=== PATIENT | male | born 1975 | race Caucasian/White ===

== ENCOUNTER → 2017-01-30 | Outpatient (CLI) | payer OTHER ==
--- NOTE | 2017-01-30 15:37 | PDCARST ---
CAR Stress Test Results Type of Stress Test: Nuclear TM stress test Indication: cp Description of Procedure: After informed consent was obtained, pt was exercised according to Marty Protocol. Monitoring was performed with standard stress coal sample tester electrode placement. Vital signs were monitored according to protocol throughout the procedure. STRESS EKG AND HEMODYNAMIC DATA. Exercise time: 15: 30 min. This is equivalent to: 15.1 METS. Resting heart rate: 65 bpm. Resting blood pressure: 180/62 mmHg. Resting O2 saturation:99%. Peak heart rate: 187 bpm. This is 106 % of age predicted maximum heart rate response. Peak blood pressure: 122/72 mmHg. Exercise O2: 96 %. Arrhythmias : occasional PACs on exertion. Reason for termination: The test was stopped due to achieving target heart rate. Symptoms: The patient experienced no typical symptoms of angina during stress or recovery. STRESS TEST ANALYSIS. Baseline ECG: SR with rSr', J point elevations. Stress ECG: Sinus tach. No exercise induced ischemic ECG changes. Rhythm: Occasional PACs noted during exercise. Blood pressure: Normal blood pressure response to exercise. Exercise tolerance: The patient has above average exercise tolerance adjusted for age and gender. Symptoms: No exercise induced symptoms. Impression: Stress ECG negative for ischemia. The Josue Treadmill Score is +15, consistent with low cardiovascular risk (<1% annual mortality). Conclusion: Await nuclear images.
== END ==
LOC: FIMAGING 13:18
PROVIDERS: ATTEND Internal Medicine Cardiovascular Disease
DX: R94.39 Abnormal result of other cardiovascular function study (principal); I25.10 Atherosclerotic heart disease of native coronary artery without angina pectoris; E78.5 Hyperlipidemia, unspecified; I45.10 Unspecified right bundle-branch block
CPT/HCPCS: 78452; 93017; A9500

== ENCOUNTER 2018-02-01 14:54 | Emergency (ER) | payer OTHER ==
--- NOTE | 2018-02-01 15:05 | EDPHY ---
H & P Stated Complaint: UPPER CHEST "FLUTTERING & TIGHTNESS" ON AND OFF X 2YRS Time Seen by Provider: 02/01/18 15:04 - Personal History Tetanus Vaccine Date: within 10 years - Medical/Surgical History Hx Asthma: No Hx Chronic Respiratory Disease: No Hx Diabetes: No Hx Cardiac Disease: No Hx Renal Disease: No Hx Cirrhosis: No Hx Alcoholism: No Hx HIV/AIDS: No Hx Splenectomy or Spleen Trauma: No Other PMH: Inguinal hernia repair. PT of [facility] - Social History Smoking Status: Never smoked Constitutional: Initial Vital Signs Temperature (C) 36.5 C 02/01/18 14:57 Heart Rate 65 02/01/18 14:57 Respiratory Rate 16 02/01/18 14:57 Blood Pressure 122/68 H 02/01/18 14:57 O2 Sat (%) 98 02/01/18 14:57 O2 Delivery Mode Room Air Allergies/Adverse Reactions: No Known Allergies Allergy (Verified 05/24/15 10:09) Home Medications: Medication Instructions Recorded NK [No Known Home Meds] 05/24/15 Medical Decision Making - Diagnostics Imaging: I viewed and interpreted images myself ED Course/Re-evaluation: CHIEF COMPLAINT: Chest tightness and heart fluttering HISTORY OF PRESENT ILLNESS: The patient is a 43 y/o male with a history of intermittent SVT complaining intermittent heart fluttering, chest tightness, and a rapid heart rate for the last 2 years. Due to these symptoms in addition to his father's cardiac history he decided to be seen by Dr. Oneill, chemistry physics teacher, at [facility]. While at [facility], he had an EKG, stress test and EBCT (7.3 calcium score). He was started on a statin and diagnosed with intermittent SVT. Due to the stress associated with having all of these tests he has had trouble sleeping as well. Dr. Oneill discussed having an ablation in February. Today he developed palpitations, chest and neck pressure, in addition to a tingling sensation in his extremities. These symptoms feel like the symptoms he has had for 2 years. [facility] advised the patient to present to the emergency department. No fever, headache, cough, shortness of breath, abdominal pain, urinary or bowel complaints, numbness. REVIEW OF SYSTEMS: A 10 point review of systems was performed and is negative with the exception of the elements mentioned in the history of present illness. PHYSICAL EXAM: HR, BP, O2 Sat, RR. Temp noted General Appearance: Alert, well hydrated, appropriate, and non-toxic appearing. Head: Atraumatic without scalp tenderness or obvious injury Eyes: Pupils equal, round, reactive to light and accommodation, EOMI, no trauma , no injection. Ears: Clear bilaterally, no perforation, normal landmarks Nose: Atraumatic, no rhinorrhea, clear. Throat: There is no erythema or exudates, no lesions, normal tonsils, mucus membranes moist. Neck: Supple, 2+ carotid upstroke, nontender, no lymphadenopathy. Respiratory: No retractions, no distress, no wheezes, and no accessory muscle use. Lungs are clear to auscultation bilaterally. Cardiovascular: Regular rate and rhythm, no murmurs, rubs, or gallops. Bilateral carotid, radial, dorsalis pedis, and posterior tibial pulses intact. Good capillary refill all extremities. Gastrointestinal: Abdomen is soft, nontender, non-distended, no masses, no rebound, no guarding, no peritoneal signs. Musculoskeletal: Normal active ROM of all extremities, atraumatic. Neurological: Alert, appropriate, and interactive. The patient has normal DTRs and non-focal cranial nerves, motor, sensory, and cerebellar exam. Skin: No rashes, good turgor, no nodules on palpation. 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 Patient's left ventricular hypertrophy and borderline ST elevation is most likely due to having an athletic heart. See hard copy and/or "tracemaster" electronic copy for interpretation. DIFFERENTIAL DIAGNOSIS: The differential diagnosis for the patient's chest pain included but was not limited to myocardial ischemia, pulmonary embolus, chest wall pain, pleural inflammation, and pulmonary infectious causes. MEDICAL DECISION MAKING: The patient is a 43 y/o male with a history of intermittent SVT presenting with intermittent heart fluttering, chest tightness, and a rapid heart rate for the last 2 years. He has had normal EKG's, stress test, and EBCT (calcium score of 7.3). He has a normal physical exam. Labs and EKG ordered. 1520: I reviewed patient's EKG as sinus rhythm with a rate of 54. 1540: I consulted with Dr. Collazo, chemistry physics teacher, regarding this patient. He agrees that this patient is safe to be discharged home with plan for follow up next week. 1543: Reassessed patient and discussed normal laboratory findings. I have thoroughly discussed plan for follow up with his chemistry physics teacher or Dr. Collazo. Patient is not comfortable with returning home and is insisting on having an echocardiogram now. I will call the entry level automotive technician and Dr. Collazo again. 1551: I consulted with Dr. Collazo regarding this patient and plan for echo. Dr. Collazo does not believe the patient needs an echo. We will give the patient the option of an admission or returning home. 1614: Reassessed patient and offered him admission for his symptoms. He politely declined admission at this time. I have thoroughly discussed outpatient follow up and the possibility for CTA's or a heart catheterizations. I believe the patient is highly anxious regarding his symptoms and has had a lack of sleep due to it. I will prescribe him Halcion for his insomnia. Return precautions provided; patient is comfortable with this plan. - Data Points Laboratory Results: 02/01/18 02/01/18 15:22 15:19 POC Hgb 15.3 gm/dL gm/dL (13.7-17.5) POC Hct 45 % % (40-51) POC Sodium 141 mEq/L mEq/L (135-145) POC Potassium 3.8 mEq/L mEq/L (3.3-5.0) POC Chloride 101 mEq/L mEq/L (97-110) POC BUN 21 mg/dL mg/dL (7-23) POC Creatinine 0.8 mg/dL mg/dL (0.7-1.3) POC Glucose 88 mg/dL mg/dL (70-100) POC Troponin I 0.00 ng/mL ng/mL (0.00-0.08) Point of Care Test Results: Chemistry 02/01/18 02/01/18 15:22 15:19 POC Sodium 141 mEq/L mEq/L (135-145) POC Potassium 3.8 mEq/L mEq/L (3.3-5.0) POC Chloride 101 mEq/L mEq/L (97-110) POC BUN 21 mg/dL mg/dL (7-23) POC Creatinine 0.8 mg/dL mg/dL (0.7-1.3) POC Glucose 88 mg/dL mg/dL (70-100) POC Troponin I 0.00 ng/mL ng/mL (0.00-0.08) ISTAT H&H 02/01/18 15:22 POC Hgb 15.3 gm/dL gm/dL (13.7-17.5) POC Hct 45 % % (40-51) Departure - Departure Disposition: Home, Routine, Self-Care Clinical Impression: Palpitations Chest pain Qualifiers: Chest pain type: other chest pain Qualified Code(s): R07.89 - Other chest pain Condition: Good Instructions: Chest Pain (ED), Heart Palpitations (ED) Additional Instructions: 1. Follow-up with your primary doctor within 72 hours. 2. Return to the Emergency Department for fever, chest pain, shortness of breath , increasing pain or other worsening of condition. 3. Follow up with a chemistry physics teacher for further testing, as soon as possible, within one week. 4. As we discussed, it is impossible to fully rule out heart disease as the cause of your chest pain in the emergency department. We would be happy to reevaluate you and observe you in the hospital at any time. 5. Consider CT Angiography or heart catheterization. 6. Take Halcion as prescribed for your insomnia. Referrals: Gavin Oneill MD [Medical Doctor] - As per Instructions Ronald Collazo MD [Medical Doctor] - As per Instructions Report Scribed for: Danny Miller Report Scribed by: Santa Gardiner Date of Report: 02/01/18 Time of Report: 15:44
[2018-02-01 16:56] VITALS: BP 116/71
--- NOTE | 2018-02-02 21:43 | CPEKG ---
Test Reason : OPEN Blood Pressure : / mmHG Vent. Rate : 054 BPM Atrial Rate : 051 BPM P-R Int : 182 ms QRS Dur : 111 ms QT Int : 416 ms P-R-T Axes : 027 001 017 degrees QTc Int : 395 ms Sinus rhythm Abnormal R-wave progression, early transition Left ventricular hypertrophy ST elevation, consider anterolateral injury Confirmed by Danny Miller ([id number]) on 02/02/2018 9:43:04 PM Referred By: Confirmed By:Danny Miller
== END 2018-02-01 16:45 | disposition home or self-care (01) ==
DX: R07.89 Other chest pain (principal); R00.2 Palpitations
CPT/HCPCS: 82435-PO; 82565-PO; 82947-PO; 84132-PO; 84295-PO; 84484-PO; 84520-PO; 85014-PO